=== PATIENT | female | born 2000 | race American Indian/Alaskan Native ===

== ENCOUNTER 2021-01-31 15:47 | Emergency (ER) | payer SELFPAY ==
[2021-01-31 17:21] VITALS: BP 125/85
--- NOTE | 2021-01-31 17:49 | Emergency Department Report ---
ED Female HPI - General Chief complaint: Urogenital-Female Stated complaint: STD CHECK Time Seen by Provider: 01/31/21 17:24 Source: patient Mode of arrival: Ambulatory Limitations: No Limitations - History of Present Illness Initial comments: 20-year-old female presents to ED with report of vaginal discharge x3 weeks. Patient states she initially thought it was a yeast infection so she tried [id number] medication but it did not help. Patient states she believes it might be bacterial vaginosis. States the discharge is grayish in color. Patient denies any abdominal pain, dysuria, fever. MD Complaint: vaginal discharge -: week(s) (3) Severity: mild Consistency: constant Improves with: none Worsens with: none Are you Now?: No Associated Symptoms: vaginal discharge. denies: vaginal bleeding, abdominal pain, fever/chills, dysuria - Related Data Previous Rx's Medication Instructions Recorded Last Taken Type metroNIDAZOLE [Flagyl] 500 mg PO Q12HR 7 Days #14 tab 01/31/21 Unknown Rx Allergies Allergy/AdvReac Type Severity Reaction Status Date / Time No Known Allergies Allergy Verified 01/31/21 17:18 ED Review of Systems ROS: Stated complaint: STD CHECK Other details as noted in HPI Comment: All other systems reviewed and negative Constitutional: denies: fever Gastrointestinal: denies: abdominal pain Genitourinary: discharge. denies: dysuria ED Past Medical Hx - Past Medical History Previous Medical History?: Yes Hx Diabetes: Yes - Surgical History Past Surgical History?: No - Medications Home Medications: Home Medications Medication Instructions Recorded Confirmed Last Taken Type metroNIDAZOLE [Flagyl] 500 mg PO Q12HR 7 Days #14 tab 01/31/21 Unknown Rx ED Physical Exam - General Limitations: No Limitations General appearance: alert, in no apparent distress - Head Head exam: Present: atraumatic, normocephalic - Eye Eye exam: Present: normal appearance, EOMI - ENT ENT exam: Present: mucous membranes moist - Neck Neck exam: Present: normal inspection - Respiratory Respiratory exam: Present: normal lung sounds bilaterally. Absent: respiratory distress - Cardiovascular Cardiovascular Exam: Present: regular rate, normal rhythm - GI/Abdominal GI/Abdominal exam: Absent: distended - Extremities Exam Extremities exam: Present: normal inspection - Neurological Exam Neurological exam: Present: alert, oriented X3 - Psychiatric Psychiatric exam: Present: normal affect, normal mood ED Course Vital Signs 01/31/21 17:18 Temperature 99 F Pulse Rate 77 Respiratory 18 Rate Blood Pressure 125/85 [Right] O2 Sat by Pulse 97 Oximetry ED Medical Decision Making - Medical Decision Making 20-year-old female presents to ED with vaginal discharge, concern for bacterial vaginosis. Denies any abdominal pain, dysuria, fever. Vital signs are normal. Patient will be treated with antibiotics. Outpatient follow-up for STD testing advised. Return precautions given. - Differential Diagnosis Vaginitis, STD Critical care attestation.: If time is entered above; I have spent that time in minutes in the direct care of this critically ill patient, excluding procedure time. ED Disposition Clinical Impression: Vaginitis Disposition: HOME / SELF CARE / HOMELESS Is pt being admited?: No Condition: Stable Instructions: Vaginitis, [id number], Bacterial Vaginosis, [id number] Prescriptions: metroNIDAZOLE [Flagyl] 500 mg PO Q12HR 7 Days #14 tab Referrals: [facility] [Outside] - 3-5 Days [facility] [Provider Group] - 3-5 Days RAJESH CISNEROS MD [Staff Physician] - 3-5 Days [facility] [Outside] - 3-5 Days Time of Disposition: 17:49
== END 2021-01-31 18:05 | disposition home or self-care (01) ==
LOC: ED 15:47
DX: N76.0 Acute vaginitis (principal); E11.9 Type 2 diabetes mellitus without complications
CPT/HCPCS: 99281